=== PATIENT | female | born 1980 | race Caucasian/White ===

== ENCOUNTER → 2019-06-28 | Outpatient (CLI) | payer OTHER | LOC: OD 12:51 | PROVIDERS: ATTEND Family Medicine | DX: E23.6 Other disorders of pituitary gland (principal); E28.2 Polycystic ovarian syndrome | CPT/HCPCS: 36415; 82670; 83001; 83002; 84144; 84146; 84443 ==

== ENCOUNTER → 2019-07-19 | Outpatient (CLI) | payer OTHER ==
[2019-07-19 09:11] LABS: CHOLESTEROL 281.53 mg/dL (0-200); TRIGLYCERIDES 291 mg/dL (<150)
[2019-07-19 09:21] LABS: DIRECT LDL 185 mg/dL (<100)
[2019-07-19 09:26] LABS: VLDL CHOLESTEROL 58.2 mg/dL (10-31)
== END ==
LOC: OD 07:54
PROVIDERS: ATTEND Family Medicine
DX: E78.2 Mixed hyperlipidemia (principal)
CPT/HCPCS: 36415; 80061

== ENCOUNTER → 2019-09-13 | Outpatient (CLI) | payer OTHER ==
[2019-09-13 09:21] LABS: ALBUMIN 4.5 g/dL (3.5-5.0); ALKALINE PHOSPHATASE 58 U/L (38-126); ASPARTATE AMINO TRANSFERASE 18 U/L (14-36); BILIRUBIN,DIRECT 0.1 mg/dL (0.0-0.4); BILIRUBIN,TOTAL 0.5 mg/dL (0.2-1.3); TOTAL PROTEIN 7.7 g/dL (6.3-8.2); TRIGLYCERIDES 239 mg/dL (<150)
[2019-09-13 09:32] LABS: DIRECT LDL 170 mg/dL (<100)
[2019-09-13 09:34] LABS: VLDL CHOLESTEROL 47.8 mg/dL (10-31)
== END ==
LOC: OD 07:56
PROVIDERS: ATTEND Family Medicine
DX: E78.2 Mixed hyperlipidemia (principal)
CPT/HCPCS: 36415; 80061; 80076